=== PATIENT | female | born 1995 | race American Indian/Alaskan Native ===

== ENCOUNTER 2021-05-26 15:43 | Outpatient (CLI) | payer OTHER ==
[2021-05-26 16:30] VITALS: BP 129/78
[2021-05-26] MEDS ORDERED: LACTATED RINGERS 1,000 ML ONE (16:56)
[2021-05-26 18:39] LABS: Bilirubin,Urine NEG (Negative); Blood,Urine NEG (Negative); Color,Urine Yellow (Yellow); Mucus,Urine FEW /HPF; Protein,Urine <15 mg/dL mg/dL (Negative)
[2021-05-26 18:41] LABS: Hematocrit 31.3 % (30.3-42.9); Hemoglobin 10.2 gm/dl (10.1-14.3); Mean Corpuscular HGB Conc 33 % (30-34); Mean Corpuscular Volume 70 fl (79-97); Platelet Count 215 K/mm3 (140-440); Red Blood Count 4.48 M/mm3 (3.65-5.03)
[2021-05-26 18:47] LABS: Amphetamine Screen,Urine Negative; Benzodiazepines Screen,Urine Negative; Cannabinoid Screen,Urine Negative; Cocaine Screen,Urine Negative; Methadone Screen,Urine Negative; Opiate Screen,Urine Negative
--- NOTE | 2021-05-26 21:25 | Ultrasound Report ---
Biophysical profile INDICATION: Tachycardia FINDINGS: breathing movement score 2, movement score 2. posturing score 2. Amniotic fluid volume score 2. heart rate 154 IMPRESSION: Normal biophysical profile Signer Name: Arsenio Krueger MD Signed: 05/26/2021 9:20 PM Workstation Name: [id number]
--- NOTE | 2021-05-28 08:06 | Ultrasound Report ---
Biophysical profile INDICATION: Tachycardia FINDINGS: breathing movement score 2, movement score 2. posturing score 2. Amniotic fluid volume score 2. heart rate 154 IMPRESSION: Normal biophysical profile Signer Name: Arsenio Krueger MD Signed: 05/26/2021 9:20 PM Workstation Name: [id number]
== END 2021-05-26 18:10 | disposition home or self-care (01) ==
LOC: TRG 15:43 → APU 15:45 → TRG 18:10
PROVIDERS: ATTEND Obstetrics & Gynecology
DX: O62.9 Abnormality of forces of labor, unspecified (principal); O34.29 Maternal care due to uterine scar from other previous surgery; O99.513 Diseases of the respiratory system complicating pregnancy, third trimester; J45.909 Unspecified asthma, uncomplicated; Z3A.37 37 weeks gestation of pregnancy; Z79.899 Other long term (current) drug therapy
CPT/HCPCS: 36415; 59025; 76816; 76819; 80307; 81001; 85027; 86592; 86706; 86762; 86850; 86900; 86901; 96360; 96361; J7120

== ENCOUNTER 2021-06-03 05:38 | Inpatient (IN) | payer OTHER ==
[2021-06-03] MEDS ORDERED: FAMOTIDINE 20 MG/2 ML INJ IV ONE (06:30)
[2021-06-03] MEDS ORDERED: BICITRA ORAL LIQD 30ML PO ONE (06:30)
[2021-06-03] MEDS ORDERED: LACTATED RINGERS 1,000 ML IV SCH (06:30)
[2021-06-03] MEDS ORDERED: OXYTOCIN DRIP 30 UNITS/500 ML BAG IV SCH ×2 (06:30→10:00)
[2021-06-03] MEDS ORDERED: METOCLOPRAMIDE 10 MG/2 ML INJ IV ONE (06:30)
[2021-06-03 06:39] LABS: Basophils % (Auto) 0.3 % (0.0-1.8); Eosinophils # (Auto) 0.2 K/mm3 (0.0-0.4); Eosinophils % (Auto) 2.1 % (0.0-4.3); Hematocrit 32.6 % (30.3-42.9); Hemoglobin 10.7 gm/dl (10.1-14.3); Lymphocytes # (Auto) 2.1 K/mm3 (1.2-5.4); Lymphocytes % (Auto) 22.5 % (13.4-35.0); Mean Corpuscular HGB Conc 33 % (30-34); Monocytes # (Auto) 1.2 K/mm3 (0.0-0.8); Monocytes % (Auto) 12.6 % (0.0-7.3); Platelet Count 251 K/mm3 (140-440); Red Blood Count 4.77 M/mm3 (3.65-5.03); Red Cell Distribution Width 19.8 % (13.2-15.2)
[2021-06-03 06:40] LABS: Mean Corpuscular Volume 68 fl (79-97)
--- NOTE | 2021-06-03 06:50 | Anesthesia Day of Surgery ---
Anesthesia Day of Surgery - Day of Surgery Patient Examined: Yes Patient H&P Reviewed: Yes Patient is NPO: Yes Beta Blockers: No Cardiac Clearance: No Pulmonary Clearance: No Betito's Test: Negative
--- NOTE | 2021-06-03 06:53 | Anesthesia Consultation ---
Anesthesia Consult and Med Hx Date of service: 06/03/21 - Airway Anesthetic Teeth Evaluation: Poor ROM Head & Neck: Adequate Mental/Hyoid Distance: Adequate Mallampati Class: Class II Intubation Access Assessment: Probably Good - Pulmonary Exam CTA: Yes - Cardiac Exam Cardiac Exam: RRR - Pre-Operative Health Status ASA Pre-Surgery Classification: ASA2 Proposed Anesthetic Plan: General, Spinal - Pre-Anesthesia Comment Pre-Anesthesia Comments: Epidural, Spinals failed with other csections according to patient - Pulmonary Hx Smoking: No Hx Asthma: Yes (last attack 2019) Hx Respiratory Symptoms: No SOB: No COPD: No Hx Pneumonia: No Hx Sleep Apnea: No - Cardiovascular System Hx Hypertension: No Hx Coronary Artery Disease: No Hx Heart Attack/AMI: No Hx Angina: No Hx Percutaneous Transluminal Coronary Angioplasty (PTCA): No Hx Cardia Arrhythmia: No Hx Pacemaker: No Hx Internal Defibrillator: No Hx Valvular Heart Disease: No Hx Heart Murmur: No Hx Peripheral Vascular Disease: No - Central Nervous System Hx Neuromuscular Disorder: No Hx Seizures: No CVA: No Hx Back Pain: Yes Hx Psychiatric Problems: No - Gastrointestinal Hx Ulcer: No Hx Gastroesophageal Reflux Disease: Yes - Endocrine Hx Renal Disease: No Hx End Stage Renal Disease: No Hx Cirrhosis: No Hx Liver Disease: No Hx Insulin Dependent Diabetes: No Hx Non-Insulin Dependent Diabetes: No Hx Thyroid Disease: No Hx Hypothyroidism: No Hx Hyperthyroidism: No - Hematic Hx Anemia: Yes Hx Sickle Cell Disease: Yes (Trait) - Other Systems Hx Alcohol Use: No Hx Substance Use: No Hx Cancer: No Hx Obesity: Yes
--- NOTE | 2021-06-03 07:05 | History and Physical Report ---
History of Present Illness Date of examination: 06/03/21 Date of admission: 06/03/21 05:38 Chief complaint: Here for an elective 4th section. History of present illness: 25 yr old, . X3 prior cesareans. Past History Past Surgical History: section - Obstetrical History Expected Date of Delivery: 06/09/21 Actual Gestation: 39 Week(s) 1 Day(s) : 5 Medications and Allergies Allergies Allergy/AdvReac Type Severity Reaction Status Date / Time Penicillins AdvReac Hives Verified 05/25/20 08:23 Home Medications Medication Instructions Recorded Confirmed Last Taken Type Albuterol 2 puff INHALATION Q4H PRN 12/29/14 05/25/20 07/30/19 History Iron 1 tab PO DAILY 05/25/20 05/25/20 05/24/20 History Vitamin 1 tab PO DAILY 05/25/20 05/25/20 05/24/20 History Clindamycin [Clindamycin CAP] 300 mg PO Q6H #28 capsule 05/29/20 Unknown Rx Docusate Sodium [Colace] 100 mg PO BID PRN #60 capsule 05/29/20 Unknown Rx Ferrous Sulfate [Feosol 325 MG tab] 325 mg PO TID #90 tablet 05/29/20 Unknown Rx Ibuprofen [Motrin] 800 mg PO Q8HR PRN #30 tablet 05/29/20 Unknown Rx oxyCODONE /ACETAMINOPHEN [Percocet 1 tab PO Q6HR PRN #40 tablet 05/29/20 Unknown Rx 5/325] Active Meds: Active Medications Hydromorphone HCl (Hydromorphone 1 Mg/1 Ml Inj) 0.5 mg IV Q4H PRN PRN Reason: breakthrough pain > 7/10 Lactated Ringer's (Lactated Ringers) 1,000 mls @ 2,250 mls/hr IV PREOP RICHARD Stop: 06/04/21 06:57 Oxytocin/Sodium Chloride (Pitocin/Ns 30 Unit/500ml) 30 units in 500 mls @ 0 m ls/hr IV TITR RICHARD; Protocol Morphine Sulfate (Morphine 4 Mg/1 Ml Inj) 2.5 mg IV Q15M PRN PRN Reason: BREAK Naloxone HCl (Naloxone 0.4 Mg/1 Ml Inj) 0.2 mg IV Q2MIN PRN PRN Reason: Res Rate </= 8 or 02 SAT < 92% Ondansetron HCl (Ondansetron 4 Mg/2 Ml Inj) 4 mg IV Q8H PRN PRN Reason: Nausea And Vomiting Sodium Chloride (Sodium Chloride 0.9% 10 Ml Flush Syringe) 10 ml IV PRN NR Review of Systems All systems: negative - Vital Signs Vital signs: Vital Signs Pulse BP 99 H 108/64 06/03/21 06:24 06/03/21 06:24 Temp Pulse Resp BP Pulse Ox 98.4 F 103 H 18 108/64 100 06/03/21 06:25 06/03/21 07:00 06/03/21 06:25 06/03/21 06:25 06/03/21 07:00 - Physical Exam Lungs: Positive: Normal air movement Abdomen: Positive: normal appearance, distention. Negative: tenderness Uterus: Positive: enlarged, normal contour Extremities: Positive: normal Deep Tendon Reflex Grade: Normal +2 - Obstetrical FHR: auscultation normal Results Result Diagrams: 06/03/21 06:15 Abnormal lab results 06/03/21 Range/Units 06:15 MCV 68 L (79-97) fl MCH 22 L (28-32) pg RDW 19.8 H (13.2-15.2) % [place] % (Auto) 12.6 H (0.0-7.3) % [place] # (Auto) 1.2 H (0.0-0.8) K/mm3 All other labs normal. Assessment and Plan - Patient Problems (1) Term Current Visit: Yes Status: Acute (2) Previous delivery affecting Current Visit: No Status: Acute Plan to address problem: For delivery today.
[2021-06-03] MEDS ORDERED: propofoL 200 MG/20 ML VIAL IV ONE (07:11)
[2021-06-03] MEDS ORDERED: KETAMINE/STERILE WATER 50 MG/ML SYRINGE ONE (07:11)
[2021-06-03] MEDS ORDERED: SUCCINYLCHOLINE CHLORIDE 200 MG/10 ML INJ MDV ONE (07:11)
[2021-06-03] MEDS ORDERED: MORPHINE 4 MG/1 ML INJ IV PRN ×2 (07:30→09:13)
[2021-06-03] MEDS ORDERED: ONDANSETRON 4 MG/2 ML INJ IV PRN ×2 (07:30→09:13)
[2021-06-03] MEDS ORDERED: NALOXONE 0.4 MG/1 ML INJ IV PRN ×2 (07:30→09:13)
[2021-06-03] MEDS ORDERED: HYDROmorphone 1 MG/1 ML INJ IV PRN (07:30)
[2021-06-03] MEDS ORDERED: LIDOCAINE MPF (2%) 20 MG/1 ML VIAL 5 ML ONE (07:32)
[2021-06-03] MEDS ORDERED: ceFAZolin/Water 2 GM/20 ML 2 GM/20 ML SYRINGE IV ONE (07:41)
[2021-06-03] MEDS ORDERED: WATER FOR IRRIG STERILE 1,500 ML BOTTLE IR ONE (07:59)
[2021-06-03] MEDS ORDERED: SODIUM CHLORIDE 0.9% IRR 1,500 ML BOTTLE IR ONE (07:59)
[2021-06-03] MEDS ORDERED: ONDANSETRON 4 MG/2 ML INJ ONE ×2 (08:00)
[2021-06-03] MEDS ORDERED: HYDROmorphone 1 MG/1 ML INJ ONE ×2 (08:15)
[2021-06-03] MEDS ORDERED: ROCURONIUM 50 MG/5 ML INJ IV ONE (08:21)
[2021-06-03] MEDS ORDERED: dexAMETHasone 20 MG/5 ML VIAL ONE (08:31)
[2021-06-03] MEDS ORDERED: IBUPROFEN 800 MG TAB PO PRN (09:13)
[2021-06-03] MEDS ORDERED: WITCH HAZEL/ GLYCERIN PAD TP PRN (09:13)
[2021-06-03] MEDS ORDERED: LANOLIN/ZINC/DIMETHICONE (LANSINOH) 7 GM TP PRN (09:13)
[2021-06-03] MEDS ORDERED: MORPHINE 2 MG/1 ML INJ IV PRN (09:13)
[2021-06-03] MEDS ORDERED: KETOROLAC 30 MG/1 ML INJ IV PRN (09:13)
[2021-06-03] MEDS ORDERED: IBUPROFEN 600 MG TAB PO PRN (09:13)
[2021-06-03] MEDS ORDERED: HYDROcodone/ACETAMINOPHEN 5-325 MG TAB PO PRN (09:13)
--- NOTE | 2021-06-03 09:24 | Operative Report ---
Operative Report Operative Report: Date of surgery: June 03, 2020 Preoperative diagnoses: Previous section, morbid obesity, term p regnancy, peritoneal adhesions Postoperative diagnoses: The same. Operation: Lower segment transverse delivery, lysis of adhesions Surgeon:Jami Gomes MD Engine Repairer: Minal Min CRNA Anesthesia: General anesthesia. Estimated blood loss: 749 mL Complications: None Findings: There was a live baby girl in cephalic presentation, weight 5 pounds 8 ounces, Apgars 8/9. Both ovaries and fallopian tubes were grossly normal. The inferior aspects of the greater omentum were adherent to the central portion of the anterior uterine serosa. Further adhesions of the greater omentum where attached to the anterior parietal peritoneum in the mid lower abdomen. The uterus was an unremarkable gravid structure. Procedure in detail: The patient was taken to the operating room and given a spinal block. Patient was placed in the straight supine position and a Gibson catheter was inserted. The patient was prepped in the abdomen. The drapes were placed. A timeout was done. With the go ahead from the mailing machine assistant, a Pfannenstiel incision was made. This incision was carried across the subcutaneous layer to the fascia which was also divided transversely. The recti abdominis muscle flaps were stripped from the fascia using a combination of blunt and sharp dissections. The muscles were in the midline to gain access to the anterior parietal peritoneum which was divided after excluding any underlying viscera. The access to the peritoneal cavity was then widened by manual stretching. The bladder blade was applied. The utero vesicle peritoneal flap was divided transversely allowing the bladder to be displaced caudally. The uterine incision was placed in the lower segment transversely. The uterine incision was carried to the decidual layer. The uterine incision was extended on both sides using the bandage scissors. The amniotic sac was ruptured with clear fluid. The head was lifted out of the false maternal pelvis and delivered through the incision using fundal pressure combined with traction using the Kiwi. The airways were bulb suctioned beginning with the mouth. Continuing fundal pressure combined with traction on the mandibular processes of the jaw delivered the rest of the baby. The umbilical cord was double clamped and divided. The baby was carefully transferred to the pediatric team. The placenta was manually removed from the uterine cavity. The uterine cavity was explored and was empty of any placental remnants. The uterine incision was repaired in 2 layers with #1 Vicryl. The surgical line on the uterus was hemostatic. The adhesions described above were divided in between 2 pairs of Kellys forceps and stumps tied off with #1 Vicryl. Hemostasis was satisfactory Blood and clots were cleared from the peritoneal cavity. The anterior parietal peritoneum was repaired with #1 Vicryl. The fascia was repaired with #1 Vicryl. The subcutaneous layer was made hemostatic using the Bovie before the skin was closed subcuticularly with 4-0 Vicryl. There were no complications. The estimated blood loss was 749 mL. All sponges and instrument counts were correct. Patient was safely transferred to the r ecovery room.
[2021-06-03] MEDS ORDERED: NEOSTIGMINE 10MG/10 ML INJ MDV ONE (09:29)
[2021-06-03] MEDS ORDERED: GLYCOPYRROLATE 0.4 MG/2 ML INJ ONE (09:29)
[2021-06-03] MEDS: KETOROLAC 30 MG/1 ML INJ IV PRN ×2 (13:24→18:33)
--- NOTE | 2021-06-03 19:32 | Post Anesthesia Evaluation ---
- Post Anesthesia Evaluation Patient Participated: Yes Airway Patent: Yes Stable Respiratory Function: Yes Nausea/Vomiting: No Temp > 96.8F: Yes Pain Manageable: Yes Adequeate Hydration: Yes Anesthesia Complications: No Block Receding Appropriately: Yes Patient on Ventilator: No
[2021-06-03 20:28] LABS: Hemoglobin 10.7 gm/dl (10.1-14.3)
[2021-06-04] MEDS: KETOROLAC 30 MG/1 ML INJ IV PRN ×2 (00:28→06:30)
[2021-06-04] MEDS ORDERED: HYDROcodone/ACETAMINOPHEN 5-325 MG TAB PO PRN ×3 (10:00→10:23)
[2021-06-04] MEDS: PRENATAL VIT27-FE FUMARATE-FOLIC ACID VIT TAB PO SCH (11:42)
[2021-06-04] MEDS: HYDROcodone/ACETAMINOPHEN 5-325 MG TAB PO PRN ×2 (11:44→19:51)
--- NOTE | 2021-06-04 20:48 | Progress Note ---
Assessment and Plan - Patient Problems (1) Term Current Visit: Yes Status: Acute (2) Previous delivery affecting Current Visit: No Status: Acute (3) S/P section Current Visit: No Status: Acute Plan to address problem: Stable. Observation will continue. Subjective - Subjective Date of service: 06/04/21 Principal diagnosis: Status post day1 Interval history: 25 yr old, . X3 prior cesareans. Patient reports: appetite normal, voiding normally, pain well controlled, ambulating normally [place]: doing well Objective - Vital Signs Latest vital signs: Vital Signs Temp Pulse Resp BP Pulse Ox Pulse Ox 06/04/21 19:51 18 06/04/21 17:04 98.1 F 84 18 117/55 97 06/04/21 08:36 98.7 F 64 16 103/44 98 06/04/21 08:00 98 06/04/21 06:30 18 98 06/04/21 04:24 98.2 F 59 L 20 99/47 98 06/04/21 00:58 98 06/04/21 00:28 18 99 06/03/21 23:46 98.4 F 64 20 106/49 98 Intake and Output 06/04/21 06/04/21 06/04/21 07:59 15:59 23:59 Intake Total 560 Output Total 800 Balance -240 Intake: Oral 560 Output: Urine 800 Void 800 Other: Total, Intake Amount 240 Total, Output Amount 500 - Exam Lungs: Present: Normal air movement Abdomen: Present: normal appearance, soft, normal bowel sounds Extremities: Present: normal Deep Tendon Reflex Grade: Normal +2 Incision: Present: normal, dry, intact
[2021-06-05] MEDS: HYDROcodone/ACETAMINOPHEN 5-325 MG TAB PO PRN ×3 (06:46→17:41)
--- NOTE | 2021-06-05 12:01 | Progress Note ---
Assessment and Plan - Patient Problems (1) Term Current Visit: Yes Status: Acute (2) Previous delivery affecting Current Visit: No Status: Acute (3) S/P section Current Visit: No Status: Acute Plan to address problem: Ready for home. Baby's status determination reserved for the Pediatricians. Subjective - Subjective Date of service: 06/05/21 Principal diagnosis: Status post day2. Interval history: 25 yr old, . X3 prior cesareans. Patient reports: appetite normal, voiding normally, pain well controlled Street: doing well, other (on phototherapy in Mom's room.) Objective - Vital Signs Latest vital signs: Vital Signs Temp Pulse Resp BP Pulse Ox Pulse Ox 06/05/21 08:55 98 06/05/21 08:15 98.3 F 64 18 116/79 100 06/05/21 06:46 22 06/05/21 01:02 97.9 F 66 16 98/57 99 06/04/21 21:34 98 06/04/21 21:25 98.3 F 73 18 109/61 99 06/04/21 20:51 18 06/04/21 19:51 18 06/04/21 19:30 98 06/04/21 17:04 98.1 F 84 18 117/55 97 Intake and Output 06/04/21 06/05/21 06/05/21 23:59 07:59 15:59 Intake Total 240 360 Balance 240 360 Intake: Intake, Free Water 240 360 Other: # Voids Void 2 1 - Exam Lungs: Present: Normal air movement Abdomen: Present: normal appearance, soft, normal bowel sounds Uterus: Present: normal Deep Tendon Reflex Grade: Normal +2 Incision: Present: normal, dry, intact
--- NOTE | 2021-06-05 12:19 | Discharge Summary ---
Providers - Providers Date of Admission: 06/03/21 05:38 Date of discharge: 06/05/21 Attending physician: CATRINA SHEA MD Primary care physician: CATRINA SHEA MD Hospitalization Reason for admission: section Delivery: Procedure: section Episiotomy: none Incision: normal, dry, intact Other procedures: none complications: none Discharge diagnosis: IUP at term delivered [place] baby: female Disposition: 01 HOME / SELF CARE / HOMELESS - Discharge Diagnoses (1) Term Status: Resolved (2) Previous delivery affecting Status: Resolved (3) S/P section Status: Acute Plan - Provider Discharge Summary Activity: routine, no sex for 6 weeks Diet: routine Instructions: other (script for norco 5 given to patient's spouse at the office.) Additional instructions: [] Smoking cessation referral if applicable(refer to patient education folder for contact #) [] Refer to [facility]'s [facility] Booklet Call your doctor immediately for: * Fever > 100.5 * Heavy vaginal bleeding ( >1 pad per hour) * Severe persistent headache * Shortness of breath * Reddened, hot, painful area to leg or breast * Drainage or odor from incision. * Keep incision clean and dry at all times and follow doctor's instructions regarding bathing/showering - Follow up plan Follow up: CATRINA SHEA MD [Primary Care Provider] - 7 Days
[2021-06-05] MEDS: PRENATAL VIT27-FE FUMARATE-FOLIC ACID VIT TAB PO SCH ×2 (12:38→12:40)
[2021-06-05 21:05] VITALS: BP 109/56
== END 2021-06-05 18:30 | disposition home or self-care (01) | DRG 766 ==
LOC: APU 05:38 → EDSTATUS 07:30 → APU 09:32 → OB 11:08
PROVIDERS: ADMIT Obstetrics & Gynecology; ATTEND Obstetrics & Gynecology
PROC: 10D00Z1 Extraction of Products of Conception, Low, Open Approach (ICD-10-PCS; principal; 2021-06-03)
DX: O34.211 Maternal care for low transverse scar from previous cesarean delivery (principal); Z37.0 Single live birth; Z3A.39 39 weeks gestation of pregnancy; O99.62 Diseases of the digestive system complicating childbirth; O99.52 Diseases of the respiratory system complicating childbirth; O99.02 Anemia complicating childbirth; O99.214 Obesity complicating childbirth; J45.909 Unspecified asthma, uncomplicated; K21.9 Gastro-esophageal reflux disease without esophagitis; D57.3 Sickle-cell trait; E66.01 Morbid (severe) obesity due to excess calories; Z20.822 Contact with and (suspected) exposure to COVID-19; Z88.0 Allergy status to penicillin
CPT/HCPCS: 36415; 59025; 85014; 85018; 85025; 86592; 86706; 86762; 86850; 86900; 86901; 87806; 96360; 99211; G0378; A6250; G0463; J0330; J1100; J1170; J1885; J2270; J2405; J2704; J2710; J2765; J3490; J7120; U0003